=== PATIENT | male | born 1990 | race Caucasian/White ===

== ENCOUNTER 2023-08-19 08:41 | Emergency (ER) | payer BC, SELFPAY ==
[2023-08-19 08:44] VITALS: BP 123/97; PULSE 92; TEMP 37.1; O2SAT 98; BMI 23.7
--- NOTE | 2023-08-19 08:51 | XR_ITS ---
WS: [id number] XR ribs LT mn 3V w [id number] REASON FOR EXAM: fall FINDINGS: There is no pneumothorax or other acute lung/pleural abnormality. Mildly displaced fracture of the posterior lateral left seventh rib. IMPRESSION: Left seventh rib fracture as above.
--- NOTE | 2023-08-19 08:56 | ED_ITS ---
HPI - Chest Pain General: Chief Complaint: Chest Pain Stated Complaint: abd pain Time Seen by Provider: 08/19/23 08:47 Source: patient Mode of arrival: ambulatory Limitations: no limitations History of Present Illness: 33 yo male that states he fell this morning on his left side. he has left sided rib pain he rates a 7/10. worse with breathing and palpation. deneis any other injury. denies head injury Associated symptoms: Deny abdominal pain, dyspnea, fever(s), nausea or vomiting Review of Systems Const: Denies: fever(s) or chills ENMT: Denies: throat pain or dental pain Card: Reports: chest pain Resp: Denies: dyspnea GI: Denies: abdominal pain, nausea, vomiting or diarrhea : Denies: dysuria Musc: Denies: neck pain or back pain Skin/Breast: Denies: rash Neuro: Denies: headache(s) Physical Exam Const: COMMON NORMALS: no acute distress, patient oriented x3 and healthy appearing HENMT: COMMON NORMALS: normocephalic and atraumatic HEAD & SCALP: normocephalic and atraumatic Neck/C-Spine: COMMON NORMALS: full ROM and supple Chest: COMMONS NORMALS: normal inspection of the chest OTHER: point tender over left chest wall Resp: COMMON NORMALS: normal respiratory effort Cardio: COMMON NORMALS: regular rate, regular rhythm and No murmurs present (Cardio) RATE: regular rate RHYTHM: regular rhythm GI: COMMON NORMALS: Normal to inspection, nondistended, normoactive bowel sounds present, Soft to palpation, non-tender and no masses PALPATION: Yes Soft to palpation Extremity: COMMON NORMALS: normal to inspection and full ROM Neuro: COMMON NORMALS: patient oriented x3, moves all extremities and no focal motor deficits Psych: COMMON NORMALS: mental status grossly normal, Normal thought process present and cooperative THOUGHT PROCESS: Normal thought process present Skin: COMMON NORMALS: no rashes or lesions noted and no wounds GENERAL SKIN EXAM: no rashes or lesions noted Course Vital Signs: Vital signs: Vital Signs Temperature 98.7 F 08/19/23 08:44 Pulse Rate 61 08/19/23 09:16 Respiratory Rate 16 08/19/23 09:16 Blood Pressure 153/96 08/19/23 09:16 Pulse Oximetry 98 08/19/23 09:16 Oxygen Delivery Me thod Room Air 08/19/23 09:03 MDM - Chest Pain Medical Decision Making pt presents here with a rib fx from a fall. he has no other injuries. pt has no pneumo. he is stable for discharge and will place on norco and incentive spirometry Medical Records I reviewed the patient's medical records. Lab Data I reviewed the patient's lab results. 08/19/23 08:46 08/19/23 08:46 Laboratory Results WBC 9.79 10^3/uL (3.29-11.43) 08/19/23 08:46 RBC 5.56 10^6/uL (3.85-5.65) 08/19/23 08:46 Hgb 16.20 g/dL (11.27-16.99) 08/19/23 08:46 Hct 50.6 % (37-53) 08/19/23 08:46 MCV 91.0 fl (82-101) 08/19/23 08:46 MCH 29.1 pg (27-33) 08/19/23 08:46 MCHC 32.0 g/dL (30-55) 08/19/23 08:46 RDW 13.2 % (12.1-15.1) 08/19/23 08:46 Plt Count 312 10^3/cmm (157-399) 08/19/23 08:46 MPV 9.5 fL (7.4-10.4) 08/19/23 08:46 Neut % (Auto) 73.3 % 08/19/23 08:46 Lymph % (Auto) 16.6 % 08/19/23 08:46 [place] % (Auto) 7.7 % 08/19/23 08:46 Eos % (Auto) 1.2 % 08/19/23 08:46 Baso % (Auto) 0.4 % 08/19/23 08:46 Neut # (Auto) 7.17 10^3/uL (1.8-7.7) 08/19/23 08:46 Lymph # (Auto) 1.6 10^3/uL (0.8-4.8) 08/19/23 08:46 [place] # (Auto) 0.8 10^3/uL (0.2-0.9) 08/19/23 08:46 Eos # (Auto) 0.1 10^3/uL (0.0-0.8) 08/19/23 08:46 Baso # (Auto) 0.0 10^3/uL (0.0-0.1) 08/19/23 08:46 Nucleated RBC % (auto) 0 % 08/19/23 08:46 Nucleated RBCs # 0.0 /100WBC 08/19/23 08:46 Sodium 141 mmol/L (136-145) 08/19/23 08:46 Potassium 4.5 mmol/L (3.5-5.1) 08/19/23 08:46 Chloride 104 mmol/L (98-107) 08/19/23 08:46 Carbon Dioxide 28 mmol/L (22-29) 08/19/23 08:46 Anion Gap 13.5 (5-19) 08/19/23 08:46 BUN 8 mg/dL (6-20) 08/19/23 08:46 Creatinine 1.0 mg/dL (0.7-1.2) 08/19/23 08:46 GFR Calculation 86.1 mL/min (90-130) L 08/19/23 08:46 Glucose 94 mg/dL (65-115) 08/19/23 08:46 Calculated Osmolality 290 mOsm/kg (285-295) 08/19/23 08:46 Calcium 9.1 mg/dL (8.5-10.5) 08/19/23 08:46 Total Bilirubin 0.4 mg/dL (0.15-1.2) 08/19/23 08:46 AST 30 U/L (0-40) 08/19/23 08:46 ALT 33 U/L (0-41) 08/19/23 08:46 Alkaline Phosphatase 112 U/L (40-130) 08/19/23 08:46 Total Protein 7.5 g/dL (6.6-8.7) 08/19/23 08:46 Albumin 4.6 g/dL (3.5-5.2) 08/19/23 08:46 Globulin 2.9 g/dL (1.3-4.6) 08/19/23 08:46 Lipase 40 U/L (13-60) 08/19/23 08:46 All radiology interpretation(s) finalized by discharge ED provider radiology interpretation(s): xr rib: posterior left 7th rib fx Discharge Plan Discharge Patient Disposition: Home Clinical Impression: Fracture of rib Qualifiers: Encounter type: initial encounter Rib fracture type: single rib Fracture type: closed Laterality: left Qualified Code(s): S22.32XA - Fracture of one rib, left side, initial encounter for closed fracture Condition: Stable Prescriptions: New hydrocodone-acetaminophen 5-325 mg tablet 1 tab PO Q6H PRN (Reason: pain) Qty: 14 0RF Discharge Orders: Discharge ED (Routine); Ordered 08/19/23 Ordered By: Yuliana Wilson Discharge Diet: Advance as tolerated Discharge Activity: Resume usual activity Patient Instructions: Rib Fracture (ED), Opioid Safety Coding Level of Care Code ED Furn[employer] Sales Associate for Ana Santana
[2023-08-19 08:58] LABS: Basophils % 0.4 %; Eosinophils # 0.1 10^3/uL (0.0-0.8); Eosinophils % 1.2 %; Hematocrit 50.6 % (37-53); Lymphocytes # 1.6 10^3/uL (0.8-4.8); Lymphocytes % 16.6 %; Mean Corpuscular Hemoglobin 29.1 pg (27-33); Mean Platelet Volume 9.5 fL (7.4-10.4); Monocytes # 0.8 10^3/uL (0.2-0.9); Monocytes % 7.7 %; Neutrophils # 7.17 10^3/uL (1.8-7.7); Neutrophils % 73.3 %; Nucleated Red Blood Cells % 0 %; Platelet Count 312 10^3/cmm (157-399); Red Blood Count 5.56 10^6/uL (3.85-5.65); Red Cell Distribution Width 13.2 % (12.1-15.1); White Blood Count 9.79 10^3/uL (3.29-11.43)
[2023-08-19] MEDS: HYDROcodone-acetaminophen 7.5-325 mg Tablet 1 TAB PO (08:59)
[2023-08-19 09:03] VITALS: BP 151/120; PULSE 96; RESP 17; O2SAT 97
[2023-08-19 09:13] LABS: Alanine Aminotransferase 33 U/L (0-41); Albumin Level 4.6 g/dL (3.5-5.2); Alkaline Phosphatase 112 U/L (40-130); Anion Gap 13.5 (5-19); Aspartate Amino Transferase 30 U/L (0-40); Blood Urea Nitrogen 8 mg/dL (6-20); Calcium 9.1 mg/dL (8.5-10.5); Carbon Dioxide 28 mmol/L (22-29); Chloride 104 mmol/L (98-107); Globulin 2.9 g/dL (1.3-4.6); Glomerular Filtration Rate 86.1 mL/min (90-130); Glucose 94 mg/dL (65-115); Lipase 40 U/L (13-60); Osmolality Calculated 290 mOsm/kg (285-295); Potassium 4.5 mmol/L (3.5-5.1); Sodium 141 mmol/L (136-145); Total Bilirubin 0.4 mg/dL (0.15-1.2); Total Protein 7.5 g/dL (6.6-8.7)
[2023-08-19 09:16] VITALS: BP 153/96; PULSE 61; RESP 16; O2SAT 98
== END 2023-08-19 10:21 | disposition home or self-care (01) ==
PROVIDERS: Emergency Provider Emergency Medicine
DX: S22.32XA Fracture of one rib, left side, initial encounter for closed fracture (principal); W19.XXXA Unspecified fall, initial encounter
CPT/HCPCS: 36415; 71101; 80053; 83690; 85025; 99284